=== PATIENT | female | born 1965 | race American Indian/Alaskan Native ===

== ENCOUNTER 2021-04-02 07:34 | Emergency (ER) | payer SELFPAY ==
[2021-04-02 07:40] VITALS: BP 190/90
--- NOTE | 2021-04-02 07:52 | Emergency Department Report ---
ED GI Bleed HPI - General Chief complaint: GI Bleed Stated complaint: BLOODY BOWEL MOVEMENT Time Seen by Provider: 04/02/21 07:50 Source: patient Mode of arrival: Ambulatory Limitations: No Limitations - History of Present Illness Initial comments: 55 YO AA FEMALE COMES TO ER CO BLOOD ON HER STOOL AND TOILET PAPER THIS AM. SIMILAR EVENT A FEW WEEKS AGO. NO ABD PAIN. NO NAUSEA/VOMITING/DIARRHEA. NO WEIGHT LOSS. SHE DID NOT SEE PCP P FIRST INCIDENT BUT GIVEN IT HAPPENED AGAIN SHE COMES TO ER. SHE WAS ON HER WAY TO WORK AND DIVERTED HERE TO GET CHECKED. SHE DENIES HEMORRHOIDS ON INTERVIEW. SHE HAS NOT HAD A COLONOSCOPY- HER PCP TELLS HER SHE NEEDS ONE. KAREN EDUCATED HER WHY AND SHE AGREES SHE WILL GET ONE. PT AMBULATORY NON ILL AND NON TOXIC ON EXAM. complaint: blood on toilet paper -: week(s) Radiation: none Severity scale (0 -10): 0 Quality: painless Worsens with: bowel movement Associated Symptoms: denies other symptoms Treatments Prior to Arrival: none - Related Data Previous Rx's Medication Instructions Recorded Last Taken Type Docusate Sodium [Colace] 100 mg PO BID #60 capsule 04/02/21 Unknown Rx Phenylephrine HCl/Kulm Butter 1 each RC QHS #7 supp.rect 04/02/21 Unknown Rx [Preparation H Suppository] Allergies Allergy/AdvReac Type Severity Reaction Status Date / Time No Known Allergies Allergy Verified 04/02/21 07:40 ED Review of Systems ROS: Stated complaint: BLOODY BOWEL MOVEMENT Other details as noted in HPI Comment: All other systems reviewed and negative ED Past Medical Hx - Past Medical History Previous Medical History?: Yes Hx Hypertension: Yes - Surgical History Past Surgical History?: Yes Additional Surgical History: ankle - Family History Family history: other (mom dec cad; dad killed) - Social History Smoking Status: Never Smoker Substance Use Type: Alcohol (beer occas) - Medications Home Medications: Home Medications Medication Instructions Recorded Confirmed Last Taken Type Docusate Sodium [Colace] 100 mg PO BID #60 capsule 04/02/21 Unknown Rx Phenylephrine HCl/Kulm Butter 1 each RC QHS #7 supp.rect 04/02/21 Unknown Rx [Preparation H Suppository] ED Physical Exam - General Limitations: No Limitations General appearance: alert, in no apparent distress - Head Head exam: Present: atraumatic, normocephalic - Eye Eye exam: Present: normal appearance - ENT ENT exam: Present: mucous membranes moist - Neck Neck exam: Present: normal inspection - Respiratory Respiratory exam: Present: normal lung sounds bilaterally. Absent: respiratory distress - Cardiovascular Cardiovascular Exam: Present: regular rate, normal rhythm. Absent: systolic murmur, diastolic murmur, rubs, gallop - GI/Abdominal GI/Abdominal exam: Present: soft, normal bowel sounds. Absent: distended, tenderness, guarding, rebound, rigid, diminished bowel sounds, hyperactive bowel sounds, hypoactive bowel sounds, organomegaly, mass, bruit, pulsatile mass, hernia - Rectal Rectal exam: Present: normal rectal tone, hemorrhoids. Absent: decreased rectal tone - Extremities Exam Extremities exam: Present: normal inspection - Back Exam Back exam: Present: normal inspection - Neurological Exam Neurological exam: Present: alert, oriented X3 - Psychiatric Psychiatric exam: Present: normal affect, normal mood - Skin Skin exam: Present: warm, dry, intact, normal color. Absent: rash ED Course Vital Signs 04/02/21 07:38 Temperature 98.1 F Pulse Rate 100 H Respiratory 18 Rate Blood Pressure 190/90 [Left] O2 Sat by Pulse 100 Oximetry ED Medical Decision Making - Medical Decision Making Vital Signs 04/02/21 07:38 Temperature 98.1 F Pulse Rate 100 H Respiratory 18 Rate Blood Pressure 190/90 [Left] O2 Sat by Pulse 100 Oximetry PT TOOK HER LISINOPRIL TODAY- SHE REPORTS WHEN SHE GOES TO MD HER BP GOES UP. SHE ALSO REPORTS THE BLOOD SCARED HER. EXTERNAL HEMORRHOIDS ON EXAM- WITH CONSTIPATION NO ABD PAIN AMBULATORY NON ILL AND NON TOXIC APPEARING TAKING PO PT EDUCATED ON HEMORRHOID CARE- WILL DC ON COLACE/ PREP H SUPP PT DC HOME WITH PREP H SUPP/COLACE FOR IMMEDIATE MANAGEMENT. I'VE GIVEN HER REFERRAL TO PCP AND GI MD FOR FOLLOW UP. SHE VERBALIZES UNDERSTANDING OF DC PLAN OF CARE INCLUDING DIET, ACTIVITY, FOLLOW UP, MEDS. ON DC AMBULATORY/TAKING PO AND IN NAD - Differential Diagnosis HEMORRHOIDS VS UGI BLEED Critical care attestation.: If time is entered above; I have spent that time in minutes in the direct care of this critically ill patient, excluding procedure time. ED Disposition Clinical Impression: Hemorrhoids, History of hypertension Disposition: HOME / SELF CARE / HOMELESS Is pt being admited?: No Does the pt Need Aspirin: No Condition: Stable Instructions: Hemorrhoids, [id number] Additional Instructions: MEDS ORDERED TODAY FOLLOW UP WITH PCP/GI WE DISCUSSED Prescriptions: Phenylephrine HCl/Kulm Butter [Preparation H Suppository] 1 each RC QHS #7 supp.rect Docusate Sodium [Colace] 100 mg PO BID #60 capsule Referrals: HUEY GOOD MD [Staff Physician] - 3-5 Days CHRISTIANO SANTIAGO MD [Staff Physician] - 3-5 Days Forms: Work/School Release Form(ED) Time of Disposition: 07:52
== END 2021-04-02 08:30 | disposition home or self-care (01) ==
LOC: ED 07:34
DX: K64.9 Unspecified hemorrhoids (principal); I10 Essential (primary) hypertension; Z98.890 Other specified postprocedural states
CPT/HCPCS: 99282